=== PATIENT | female | born 1940 | race Caucasian/White ===

== ENCOUNTER 2021-04-20 10:03 | Emergency (ER) | payer MEDICARE ==
[2021-04-20 10:16] VITALS: BP 124/83; PULSE 110; RESP 18; TEMP 97.8
[2021-04-20] MEDS ORDERED: MORPHINE SULFATE 4 MG/ML SYRINGE IM STA (10:32)
[2021-04-20] MEDS ORDERED: methylPREDNISolone SOD SUCCI 125 MG/2 ML VIAL IM STA (10:32)
--- NOTE | 2021-04-20 11:17 | XR ---
EXAMINATION TYPE: XR lumbar spine 2 or 3V DATE OF EXAM: 04/20/2021 CLINICAL HISTORY: pain TECHNIQUE: Three views of the lumbar spine are submitted. COMPARISON: None. FINDINGS: There are 5 lumbar type vertebral bodies identified. The lumbar spine shows satisfactory alignment w ithout evidence of acute fracture or dislocation. Vertebral body heights are within normal limits. Moderate degenerative narrowing L4-5 and L5-S1. Grade 1 anterolisthesis L4 and L5 measuring 7.8 mm. S evere lower lumbar facet joint arthropathy. The overlying soft tissue appears unremarkable. IMPRESSION: No acute fractures identified. ICD 10 NO FRACTURE, INITIAL EVALUATION
--- NOTE | 2021-04-20 11:23 | ED ---
Back Pain HPI - General Chief Complaint: Back Pain/Injury Stated Complaint: Fall, unable to walk Time Seen by Provider: 04/20/21 10:20 Source: patient, family, RN notes reviewed Limitations: physical limitation - History of Present Illness Initial Comments: Patient is an 80-year-old female that presents to emergency department complaining of low back pain for approximately one week. She notes that she slid out of the chair landing on her butt. She notes that they went to the chiropractor who stated that she had sciatica cracked her back and sent her home. They state the chiropractor told her some stretches and exercises to help improve pain symptoms. Patient notes that she recently went for a road trip to [place] and then stayed in a family member's house and uncomfortable but which then caused the other side of her low back to her. She notes that she is having radicular symptoms down her right groin and leg. Patient denied any bladder or bowel incontinence or retention. She denied any saddle anesthesia. She was otherwise a well-appearing 80-year-old female in no apparent distress or pain. She denied any trauma or injury chest pain shortness of breath headache nausea vomiting diarrhea constipation fever fatigue chills. - Related Data Previous Rx's Medication Instructions Recorded predniSONE 50 mg PO DAILY #5 tab 04/20/21 Allergies Allergy/AdvReac Type Severity Reaction Status Date / Time tomato AdvReac Nausea & Verified 04/20/21 10:16 Vomiting Review of Systems ROS Statement: Those systems with pertinent positive or pertinent negative responses have been documented in the HPI. ROS Other: All systems not noted in ROS Statement are negative. Past Medical History Additional Past Medical History / Comment(s): OA History of Any Multi-Drug Resistant Organisms: None Reported Past Surgical History: Adenoidectomy, Tonsillectomy Past Psychological History: No Psychological Hx Reported Smoking Status: Never smoker Past Alcohol Use History: None Reported Past Drug Use History: None Reported General Exam Limitations: physical limitation General appearance: alert, in no apparent distress Head exam: Present: atraumatic, normocephalic, normal inspection Eye exam: Present: normal appearance, PERRL, EOMI. Absent: scleral icterus, conjunctival injection, periorbital swelling Neck exam: Present: normal inspection Respiratory exam: Present: normal lung sounds bilaterally. Absent: respiratory distress, wheezes, rales, rhonchi, stridor Cardiovascular Exam: Present: regular rate, normal rhythm, normal heart sounds. Absent: systolic murmur, diastolic murmur, rubs, gallop, clicks Extremities exam: Present: normal inspection, full ROM, normal capillary refill. Absent: tenderness, pedal edema, joint swelling, calf tenderness Back exam: Present: normal inspection, tenderness (Right SI) Neurological exam: Present: alert, oriented X3 Psychiatric exam: Present: normal affect, normal mood Skin exam: Present: warm, dry, intact, normal color. Absent: rash Course Vital Signs 04/20/21 10:12 Temperature 97.8 F Pulse Rate 110 H Respiratory 18 Rate Blood Pressure 124/83 O2 Sat by Pulse 94 L Oximetry Medical Decision Making - Medical Decision Making 80-year-old female complaining of right lower back pain with radicular symptoms on the right lower extremity. X-ray lumbar spine, 4 mg of morphine, 125 mg of Solu-Medrol ordered. X-ray negative for any acute fracture. Patient most likely has sciatica with radicular symptoms. Case discussed with Dr. Chase, patient can discharge home with follow-up to primary care. - Radiology Data Radiology results: report reviewed, image reviewed Lumbar spine x-ray: No acute fractures identified. Disposition Clinical Impression: Sciatica, Lumbar radiculopathy Disposition: HOME SELF-CARE Condition: Stable Additional Instructions: Please return to the Emergency Department if symptoms worsen or any other concerns. Follow-up with primary care, potentially get referral for physical therapy. Take steroids as prescribed. Take Motrin and/or Tylenol as needed for pain control. Avoid any strenuous activity or exercise. Is patient prescribed a controlled substance at d/c from ED?: No Referrals: Esperanza Neville MD [Primary Care Provider] - 1-2 days Time of Disposition: 11:23
== END 2021-04-20 11:37 | disposition home or self-care (01) ==
LOC: EC 10:03
DX: M54.16 Radiculopathy, lumbar region (principal); M54.41 Lumbago with sciatica, right side; W07.XXXA Fall from chair, initial encounter
CPT/HCPCS: 72100; 96372 ×2; 99283; J2270; J2930

== ENCOUNTER 2024-09-10 10:40 | Emergency (ER) | payer MEDICARE ==
--- NOTE | 2024-09-10 10:51 | ED ---
Extremity Problem HPI - General Stated complaint: R Side Body Pain Time Seen by Provider: 09/10/24 10:50 Source: patient, family, RN notes reviewed Mode of arrival: wheelchair Limitations: no limitations - History of Present Illness Initial comments: 84-year-old female presented the ER for evaluation of right hip and shoulder pain. She does report a history of chronic pain to her right hip but has gotten worse recently and starting to travel down her inner thigh. Patient does see the chiropractor. Patient is typically able to ambulate with a walker without difficulty. She has been having more difficulty recently. No injuries or falls. No other complaints. - Related Data Previous Rx's Medication Instructions Recorded predniSONE 50 mg PO DAILY #5 tab 04/20/21 Cyclobenzaprine [Flexeril] 10 mg PO TID #15 tab 09/10/24 Lidocaine 4% Patch 1 patch TOPICAL DAILY #15 patch 09/10/24 Allergies Allergy/AdvReac Type Severity Reaction Status Date / Time tomato AdvReac Nausea & Verified 09/10/24 11:46 Vomiting Review of Systems ROS Statement: Those systems with pertinent positive or pertinent negative responses have been documented in the HPI. ROS Other: All systems not noted in ROS Statement are negative. Past Medical History Additional Past Medical History / Comment(s): OA History of Any Multi-Drug Resistant Organisms: None Reported Past Surgical History: Adenoidectomy, Tonsillectomy Past Psychological History: No Psychological Hx Reported Smoking Status: Never smoker Past Alcohol Use History: None Reported Past Drug Use History: None Reported General Exam - General Exam Comments Initial Comments: Visual Physical Exam Vital signs reviewed General: Well-appearing, nontoxic, no acute distress. Head: Normocephalic, atraumatic Eyes: PERRLA, EOMI ENT: Airway patent Chest: Nonlabored breathing Skin: No visual rash, normal skin tone Neuro: Alert and oriented 3 Musculoskeletal: No gross abnormalities General appearance: alert, in no apparent distress Respiratory exam: Present: normal lung sounds bilaterally. Absent: respiratory distress, wheezes, rales, rhonchi, stridor Cardiovascular Exam: Present: regular rate, normal rhythm, normal heart sounds. Absent: systolic murmur, diastolic murmur, rubs, gallop, clicks Extremities exam: Present: normal inspection, full ROM, tenderness (right greater trochanter), normal capillary refill, other (2+ right DP and PT pulse) Neurological exam: Present: alert, oriented X3, CN II-XII intact Skin exam: Present: warm, dry, intact, normal color. Absent: rash Course Vital Signs 09/10/24 09/10/24 11:42 14:57 Temperature 98.2 F Pulse Rate 94 97 Respiratory 22 18 Rate Blood Pressure 175/83 146/89 O2 Sat by Pulse 93 L 95 Oximetry Medical Decision Making - Medical Decision Making I performed the quick note portion of this chart. Electronically signed by KEILY Pennington-C Was pt. sent in by a medical professional or institution (KEILY Cole, [employer], urgent care, hospital, or fdc...) When possible be specific @ -No Did you speak to anyone other than the patient for history (EMS, parent, family, police, friend...)? What history was obtained from this source @ -Daughter, at bedside, aiding in HPI past medical history. Did you review nursing and triage notes (agree or disagree)? Why? @ -I reviewed and agree with nursing and triage notes Were old charts reviewed (outside hosp., previous admission, EMS record, old EKG, old radiological studies, urgent care reports/EKG's, fdc records)? Report findings @ -No old charts were reviewed Differential Diagnosis (chest pain, altered mental status, abdominal pain women, abdominal pain men, vaginal bleeding, weakness, fever, dyspnea, syncope, headac he, dizziness, GI bleed, back pain, seizure, CVA, palpatations, mental health, musculoskeletal)? @ -Differential Musculoskeletal: Muscular strain, contusion, ligament sprain, fracture, arthritis, septic arthritis, bursitis, cellulitis, muscle spasm, nerve compression, DVT, arterial occlusion, herpes zoster, electrolyte abnormality, tumor.... This is not meant to be in all inclusive list EKG interpreted by me (3pts min.). @ -None done X-rays interpreted by me (1pt min.). @ -Right shoulder x-ray interpreted me negative for acute fractures or dislocations. Right hip AP pelvis x-ray interpreted by me negative for acute fractures or dislocations. CT interpreted by me (1pt min.). @ -None done U/S interpreted by me (1pt. min.). @ -None done What testing was considered but not performed or refused? (CT, X-rays, U/S, labs)? Why? @ -None What meds were considered but not given or refused? Why? @ -None Did you discuss the management of the patient with other professionals (professionals i.e. , PA, [employer], lab, RT, psych nurse, psychotherapist social worker, rehabilitation physician, teacher, senior administrative services officer, pillowcase cleaner)? Give summary @ -No Was smoking cessation discussed for >3mins.? @ -No Was critical care preformed (if so, how long)? @ -No Were there social determinants of health that impacted care today? How? (Homelessness, low income, unemployed, alcoholism, drug addiction, transportation, low edu. Level, literacy, decrease access to med. care, long-term, rehab)? @ -No Was there de-escalation of care discussed even if they declined (Discuss DNR or withdrawal of care, Hospice)? DNR status @ -No What co-morbidities impacted this encounter? (DM, HTN, Smoking, COPD, CAD, Cancer, CVA, ARF, Chemo, Hep., AIDS, mental health diagnosis, sleep apnea, morbid obesity)? @ -None Was patient admitted / discharged? Hospital course, mention meds given and route, prescriptions, significant lab abnormalities, going to OR and other pertinent info. @ -Discharge. 84-year-old female presented to the ER for evaluation of right hip pain. History and physical exam completed. Vitals within normal limits. Patient is neuro vastly intact. There is tenderness over right greater trochanter. X-ray obtained negative for acute fractures or dislocations. Patient given symptomatic control with IM Toradol and lidocaine patches. Lidocaine patches and Flexeril prescribed as pain believed to be MSK/butsitis. I advised her to follow-up closely with PCP. Strict return parameters discussed. Patient discharged in stable condition with follow-up to PCP. Patient verbally expressed understanding and agreement with care plan. Case discussed with ED attending, Dr. Pressley. Undiagnosed new problem with uncertain prognosis? @ -No Drug Therapy requiring intensive monitoring for toxicity (Heparin, Nitro, Insulin, Cardizem)? @ -No Were any procedures done? @ -No Diagnosis/symptom? @ -Hip pain/bursitis Acute, or Chronic, or Acute on Chronic? @ -Acute Uncomplicated (without systemic symptoms) or Complicated (systemic symptoms)? @ -Uncomplicated Side effects of treatment? @ -No Exacerbation, Progression, or Severe Exacerbation? @ -No Poses a threat to life or bodily function? How? (Chest pain, USA, ID, pneumonia, PE, COPD, DKA, ARF, appy, cholecystitis, CVA, Diverticulitis, Homicidal, Suicidal, threat to staff... and all critical care pts) @ -No Disposition Clinical Impression: Hip pain, Bursitis Disposition: HOME SELF-CARE Condition: Stable Additional Instructions: I recommend taking [id number] ibuprofen and Tylenol for pain control. Use lidocaine patches and Flexeril as prescribed. Follow-up with PCP. Return to the ER for any new or worsening concerns. Prescriptions: Cyclobenzaprine [Flexeril] 10 mg PO TID #15 tab Lidocaine 4% Patch 1 patch TOPICAL DAILY #15 patch Is patient prescribed a controlled substance at d/c from ED?: No Referrals: Esperanza Neville MD [Primary Care Provider] - 1-2 days Time of Disposition: 14:32
[2024-09-10 11:46] VITALS: TEMP 98.2
--- NOTE | 2024-09-10 13:00 | XR ---
EXAMINATION TYPE: XR shoulder complete RT DATE OF EXAM: 09/10/2024 CLINICAL HISTORY: Pain TECHNIQUE: Three views of the right shoulder are obtained. COMPARISON: None. FINDINGS: There is no acute fracture/dislocation evident in the right shoulder. Demineralization is present. Mild to moderate narrowing and spurring at the acromioclavicular joint. There is narrowing a t the glenohumeral joint The visualized right lung is clear. IMPRESSION: There is no acute findings in the right shoulder. [facility], , 09/10/2024 12:57 PM
--- NOTE | 2024-09-10 13:01 | XR ---
EXAMINATION TYPE: XR Hip RT and AP Pelvis DATE OF EXAM: 09/10/2024 COMPARISON: NONE CLINICAL INDICATION: Female, 84 years old with history of pain; TECHNIQUE: A single AP view of the pelvis is obtained. Two views of the right hip are obtained. FINDINGS: Demineralization is seen. There is no acute fracture/dislocation evident in the pelvis or right hip. Mild to moderate narrowing and mild spurring of both hip joints is present. Sacroiliac marta nts are maintained bilaterally. Pubic symphysis is intact. Scattered small pelvic phleboliths are not ed. IMPRESSION: There is no acute fracture or dislocation in the pelvis or right hip. [facility], , 09/10/2024 12:58 PM
[2024-09-10] MEDS: KETOROLAC 15 MG/ML 1 ML VIAL IM STA (14:37)
[2024-09-10] MEDS: LIDOCAINE 4% PATCH TOPICAL ONE (14:38)
[2024-09-10 14:59] VITALS: BP 146/89; PULSE 97; RESP 18
== END 2024-09-10 14:58 | disposition home or self-care (01) ==
LOC: EC 10:40
DX: M25.551 Pain in right hip (principal); M71.9 Bursopathy, unspecified; G89.29 Other chronic pain; Z91.018 Allergy to other foods
CPT/HCPCS: 73502; 73030; 99283; 96372; J1885